=== PATIENT | female | born 1990 | race American Indian/Alaskan Native ===

== ENCOUNTER 2020-12-22 12:12 | Emergency (ER) | payer MEDICAID ==
[2020-12-22 12:32] VITALS: BP 119/77
--- NOTE | 2020-12-22 12:36 | Event Note ---
ED Screening Note Date of service: 12/22/20 Time: 12:35 ED Screening Note: 5 months patient presents with complaints of racing heart this morning States heart rate at home was 175 Denies any past heart history Admits to some shortness of breath and 3 episodes of traveling in the past 4 to 6 weeks No leg pain/swelling or history of DVT/PE Discussed with L&D nurse-states patient should stay here in the ED L&D nurse will come and do heart tones Patient denies any abdominal pain or vaginal bleeding Heart rate here in the ED between 135 and 145 This initial assessment/diagnostic orders/clinical plan/treatment(s) is/are subject to change based on patients health status, clinical progression and re- assessment by fellow clinical providers in the ED. Further treatment and workup at subsequent clinical providers discretion. Patient/guardian urged not to elope from the ED as their condition may be serious if not clinically assessed and managed. Initial orders include: Labs
[2020-12-22 13:01] LABS: Basophils % (Auto) 0.2 % (0.0-1.8); Eosinophils # (Auto) 0.1 K/mm3 (0.0-0.4); Eosinophils % (Auto) 0.8 % (0.0-4.3); Hematocrit 31.9 % (30.3-42.9); Hemoglobin 10.9 gm/dl (10.1-14.3); Lymphocytes # (Auto) 2.3 K/mm3 (1.2-5.4); Lymphocytes % (Auto) 22.5 % (13.4-35.0); Mean Corpuscular HGB Conc 34 % (30-34); Mean Corpuscular Volume 86 fl (79-97); Monocytes # (Auto) 0.7 K/mm3 (0.0-0.8); Monocytes % (Auto) 6.7 % (0.0-7.3); Platelet Count 368 K/mm3 (140-440); Red Blood Count 3.72 M/mm3 (3.65-5.03); Red Cell Distribution Width 12.9 % (13.2-15.2)
[2020-12-22 13:21] LABS: Alanine Aminotransferase 13 units/L (7-56); Albumin 3.8 g/dL (3.9-5); Blood Urea Nitrogen 5 mg/dL (7-17); Calcium 9.6 mg/dL (8.4-10.2); Hemolysis Index 26
[2020-12-22 13:31] LABS: BUN/Creatinine Ratio 13
--- NOTE | 2020-12-24 21:35 | Electrocardiograph Report ---
[facility] Test Date: 2020-12-22 Test Time: 12:40:34 Pat Name: KEILY VAN Department: Room: Gender: F Ball Sorter: YOANNA : 1990 Requested By: GARETH KELSEY Order Number: [id number] Reading MD: Jade Woodard Measurements Intervals [place] Rate: 130 P: 59 IA: 123 QRS: 74 QRSD: 83 T: 3 QT: 302 QTc: 443 Interpretive Statements Sinus tachycardia No previous ECG available for comparison Electronically Signed On 12-24-2020 21:35:16 EDT by Jade Woodard
== END 2020-12-22 15:30 ==
LOC: ED 12:12
DX: O99.411 Diseases of the circulatory system complicating pregnancy, first trimester (principal); R06.02 Shortness of breath; R00.2 Palpitations; Z53.21 Procedure and treatment not carried out due to patient leaving prior to being seen by health care provider; Z3A.01 Less than 8 weeks gestation of pregnancy
CPT/HCPCS: 36415; 80053; 84484; 85025; 93005